=== PATIENT | male | born 1950 | race Hispanic/Latino ===

== ENCOUNTER 2018-08-26 05:44 | Inpatient (IN) | payer OTHER ==
--- NOTE | 2018-08-19 09:49 | RAD REPORT ---
EXAM DESCRIPTION: RAD - Chest Pa And Lat (2 Views) - 08/19/2018 9:39 am CLINICAL HISTORY: preop Chest pain. COMPARISON: CHEST PA AND LAT 2 VIEW dated 07/24/2009 FINDINGS: The lungs are clear. The heart is upper limit of normal in size. Mild tortuous thoracic ao rta. No displaced fractures. IMPRESSION: No acute or concerning finding suspected.
[2018-08-19 10:06] LABS: Absolute Lymphocytes (CBC) 1.6 K/uL (0.7-4.9); Absolute Monocytes 0.7 K/uL (0.1-1.3); Absolute Neutrophil 4.9 K/uL (1.8-8.0); Basophils % 0.8 % (0-1.3); Eosinophils % 1.6 % (0-4.4); Hematocrit 44.4 % (39.6-49.0); MPV 9.5 fL (7.6-11.3); Monocytes % 9.2 % (3.3-12.3); RBC Red Blood Cell Count 4.85 M/uL (4.33-5.43)
[2018-08-19 10:12] LABS: Protime INR 0.96
--- NOTE | 2018-08-20 10:32 | EKG ---
Test Date: 2018-08-19 Test Time: 08:26:57 Filenet Developer: GAMA MEASUREMENT RESULTS: Intervals: Rate: 78 MS: 182 QRSD: 102 QT: 388 QTc: 442 [place]: P: -8 MS: 182 QRS: -37 T: 59 INTERPRETIVE STATEMENTS: Normal sinus rhythm Left axis deviation Abnormal ECG No previous ECG available for comparison Electronically Signed On 08-19-18 09:35:49 CDT by Jamar Ford
--- OUTSIDE RECORDS SUMMARY | 2018-08-26 05:50 | XMS REPORT ---
:1950 Author Organization e[employer] Care Team Providers Name Role Phone Gabino Flannery Provider Role Unavailable Allergies, Adverse Reactions, Alerts Substance Reaction Event Type N.K.D.A. Info Not Available Non Drug Allergy Problems Problem Type Condition Code Onset Dates Condition Status Problem Primary osteoarthritis of right M17.11 Active knee Problem Primary osteoarthritis of left knee M17.12 Active Assessment Primary osteoarthritis of right M17.11 Active knee Assessment Primary osteoarthritis of left knee M17.12 Active Assessment Pain, joint, knee, left M25.562 Active Assessment Acute pain of right knee M25.561 Active Medications Medication Code System Code Instructions Start End Date Status Dosage Date Losartan [facility] 05366602008 50 MG Oral Active TK 1 T PO Potassium QD Results No Known Results Summary Purpose [employer] Submission
--- OUTSIDE RECORDS SUMMARY | 2018-08-26 05:50 | XMS REPORT ---
[...] Start End Date Status Dosage Date Losartan [facility] 51722255733 50 MG Oral Active TK 1 T PO Potassium QD Results No Known Results Summary Purpose [employer] Submission
--- OUTSIDE RECORDS SUMMARY | 2018-08-26 05:50 | XMS REPORT ---
:1950 Author Organization [employer] Care Team Providers Name Role Phone Gabino Flannery Provider Role Unavailable Allergies, Adverse Reactions, Alerts Substance Reaction Event Type N.K.D.A. Info Not Available Non Drug Allergy Problems Problem Type Condition Code Onset Dates Condition Status Problem Primary osteoarthritis of right knee M17.11 Active Problem Primary osteoarthritis of left knee M17.12 Active Assessment Primary osteoarthritis of right knee M17.11 Active Assessment Primary osteoarthritis of left knee M17.12 Active Medications Medication Code System Code Instructions Start End Date Status Dosage Date Losartan [facility] 89989786226 50 MG Oral Active TK 1 T PO Potassium QD Results No Known Results Summary Purpose [employer] Submission
--- OUTSIDE RECORDS SUMMARY | 2018-08-26 05:50 | XMS REPORT ---
:1950 Author Organization [employer] Care Team Providers Name Role Phone Flannery Gabino Provider Role Unavailable Allergies No Known Allergies Problems Problem Type Condition Code Onset Dates Condition Status Problem Primary osteoarthritis of right knee M17.11 Active Problem Primary osteoarthritis of left knee M17.12 Active Medications Medication Code System Code Instructions Start End Date Status Dosage Date Xarelto [facility] 78005481386 10 MG Orally Once August 13, Active 1 tablet a day for 11 days 2019 with food after surgery Results No Known Results Summary Purpose [employer]ClinicalWorks Submission
--- OUTSIDE RECORDS SUMMARY | 2018-08-26 05:50 | XMS REPORT ---
[...] left knee M17.12 Active Medications Medication Code Code Instructions Start End Date Status Dosage System Date [facility] 55283015991 7.5 MG Orally Feb 17, Mar 19, Active 1 tablet Once a day 2017 2017 Losartan [facility] 38923528729 50 MG Oral Active TK 1 T PO Potassium QD Results No Known Results Summary Purpose [employer]ClinicalWorks Submission
--- OUTSIDE RECORDS SUMMARY | 2018-08-26 05:50 | XMS REPORT ---
[...] Acute pain of right knee M25.561 Active Assessment Primary osteoarthritis of right M17.11 Active knee Assessment Primary osteoarthritis of left knee M17.12 Active Medications Medication Code System Code Instructions Start End Date Status Dosage Date Losartan [facility] 49641904531 50 MG Oral Active TK 1 T PO Potassium QD Results No Known Results Summary Purpose [employer] Submission
--- OUTSIDE RECORDS SUMMARY | 2018-08-26 05:50 | XMS REPORT ---
[...] right knee M25.561 Active Medications Medication Code Code Instructions Start End Date Status Dosage System Date Tramadol HCl [facility] 08781241631 50 MG Orally Jun 18, Jun 28, Active 1 tablet every 6 hrs 2018 2018 as needed Losartan [facility] 72227420863 50 MG Oral Active TK 1 T PO Potassium QD Results No Known Results Summary Purpose [employer]ClinicalWorks Submission
--- OUTSIDE RECORDS SUMMARY | 2018-08-26 05:51 | XMS REPORT ---
:1950 Author Organization [employer] Care Team Providers Name Role Phone Prudencio Gabino Provider Role Unavailable Allergies No Known Allergies Problems Problem Type Condition Code Onset Dates Condition Status Problem Primary osteoarthritis of right knee M17.11 Active Problem Primary osteoarthritis of left knee M17.12 Active Medications Medication Code System Code Instructions Start End Date Status Dosage Date [facility] [place] 13045439180 7.5-325 MG August 19, August 29, Active 1 tablet Orally every 6 2018 2018 as needed hrs Results No Known Results Summary Purpose [employer]ClinicalWorks Submission
--- OUTSIDE RECORDS SUMMARY | 2018-08-26 05:51 | XMS REPORT ---
:1950 Author Organization [employer]Works Care Team Providers Name Role Phone Gabino Flannery Provider Role Unavailable Allergies No Known Allergies Problems Problem Type Condition Code Onset Dates Condition Status Problem Primary osteoarthritis of right knee M17.11 Active Problem Primary osteoarthritis of left knee M17.12 Active Medications No Known Medications Results No Known Results Summary Purpose [employer]ClinicalWorks Submission
[2018-08-26] MEDS ORDERED: Ringers Lactate 1,000 ML IV ONE ×2 (06:04→07:08)
[2018-08-26] MEDS ORDERED: CEFAZOLIN/SWI 2gm 2 GM/20 ML SYR ONE (06:04)
[2018-08-26] MEDS ORDERED: FENTANYL CITR 250 MCG/5 ML ONE (07:12)
[2018-08-26] MEDS ORDERED: DEXAMETHASONE 4 MG/ML VIAL ONE (07:12)
[2018-08-26] MEDS ORDERED: MIDAZOLAM HCL 2 MG/2 ML INJ ONE (07:12)
[2018-08-26] MEDS ORDERED: ROPLVACAINE HCL 40 ML ONE (07:13)
[2018-08-26] MEDS ORDERED: TRANEXAMIC ACID 1,000 MG in NA CHLORIDE 0.9% 50 ML IV SCH (07:30)
[2018-08-26] MEDS ORDERED: BUPIVACA 0.5%/EPI 0.0005%/PF 30 ML VIAL ONE (07:34)
[2018-08-26] MEDS ORDERED: ONDANSETRON 4 MG/2 ML VIAL ONE (07:49)
[2018-08-26] MEDS ORDERED: EPHEDRINE SULF 50 MG/ML VIAL ONE (07:49)
[2018-08-26] MEDS ORDERED: PROPOFOL 200 MG/20 ML VIAL IV ONE (07:49)
[2018-08-26] MEDS ORDERED: LIDOCAINE 2% MPF 5 ML VIAL ONE (07:49)
[2018-08-26] MEDS ORDERED: ROCURONIUM 50 MG/5 ML VIAL IV ONE (07:50)
[2018-08-26] MEDS ORDERED: MEPERIDINE HCL 25 MG/0.5 ML ONE (10:26)
--- NOTE | 2018-08-26 10:37 | P.BOP ---
Preoperative diagnosis: left knee osteoarthritis Postoperative diagnosis: same Primary procedure: left total knee arthroplasty Drum Worker: NONE,NONE Estimated blood loss: 20 cc Specimen: left knee bone remnants Findings: see dictation Anesthesia: General Complications: None Drain(s): Urinary catheter Implants: Biomet 67.5 CR femur, 83 Tibia, 10 mm CR Epoly, 37 patella Fluids & blood products: per anesthesia; TT: 93 mins @ 300 mmHg Transferred to: Recovery Room Condition: Good
[2018-08-26] MEDS ORDERED: ONDANSETRON 4 MG/2 ML VIAL IV PRN (10:38)
[2018-08-26] MEDS ORDERED: DOCUSATE NA 100 MG CAP PO PRN (10:38)
[2018-08-26] MEDS: HYDROMORPHONE HCL 1 MG/ML INJ ONE ×2 (10:45→10:50)
[2018-08-26 11:07] LABS: Hematocrit 42.7 % (39.6-49.0)
[2018-08-26] MEDS ORDERED: HYDROMORPHONE HCL 1 MG/ML INJ ONE (11:13)
--- NOTE | 2018-08-26 11:21 | RAD REPORT ---
EXAM DESCRIPTION: RAD - Knee Left 2 View - 08/26/2018 11:10 am CLINICAL HISTORY: Post Op COMPARISON: No comparisons FINDINGS: Left total knee arthroplasty is present. Small amount of air is present in the joint space . Skin irma are noted along the midline. No unexpected finding. IMPRESSION: Left TKA.
[2018-08-26] MEDS: HYDROCODONE/APAP 7.5/325 MG TAB PO PRN ×2 (13:22→19:27)
[2018-08-26] MEDS: MORPHINE 4 MG/ML SYR IV PRN (16:41)
[2018-08-26] MEDS: CEFAZOLIN/SWI 2gm 2 GM/20 ML SYR IV SCH (16:41)
[2018-08-26] MEDS: OXYCODONE *CR* 10 MG TAB PO SCH (21:20)
[2018-08-26 21:57] LABS: Urine Appearance CLEAR; Urine Bilirubin NEGATIVE (NEG); Urine Blood NEGATIVE (NEG); Urine Color YELLOW; Urine Glucose NEGATIVE (NEG); Urine Protein NEGATIVE (NEG); Urine Specific Gravity 1.025 (1.005-1.030); Urine Urobilinogen 0.2 mg/dL (0.2-1.0); Urine pH 6.5 (5.0-7.0)
[2018-08-26 22:00] LABS: Urine Microscopic Reflex NO UMIC
--- NOTE | 2018-08-26 22:23 | P.OP ---
Preoperative diagnosis: left knee osteoarthritis Postoperative diagnosis: same Primary procedure: left total knee arthroplasty Anesthesia: General Estimated blood loss: 20 cc Specimen: left knee bone remnants Findings: see dictation Operative Technique: Indication For Procedure: Vito is a 68-year-old male, who presented to my clinic with leftt knee pain due to left knee osteoarthritis. The patient failed conservative treatment measures including home exercises, corticosteroid injections and viscosupplementation injections. He reported continued pain that affect his activities of daily living. He was recommended total knee arthoplasty. Description Of Procedure: After informed consent was obtained, the patient was identified in preop holding area. The left lower extremity was marked. The patient underwent a femoral nerve block performed by Anesthesia. He was then taken back to the operative room and transferred to the operating table in supine fashion and placed under general LMA anesthesia. The left lower extremity was then prepped and draped in usual sterile fashion. A time-out was initiated. Correct patient and procedure were confirmed and identified. The patient had received preoperative prophylactic antibiotics. The left lower extremity was exsanguinated and the tourniquet was inflated to 300 mmHg. Approximately, a 15 cm longitudinal incision was made over the anterior aspect of the knee centered over the patella. A standard median parapatellar approach was taken. The dissection was taken to the extensor mechanism. A median parapatellar arthrotomy was then performed. The patella was then everted and the fat pad and medial and lateral meniscus were excised. A lateral release was performed of the patella and osteophytes were removed using a rongeur. There was significant cartilage wear on the undersurface of the patella and it was decided to resurface the patella. Next, attention was taken to the femur, retractors were placed within the knee and the knee was held in flexion. A partial synovectomy was performed over the anterior aspect of the distal femur. A cutting block has been created preoperatively using MRI imaging and the block was then placed over the distal femur and then positioned and was stacked into place and pins were placed within the guide hole in the block. The distal femoral cutting guide was then placed over the pre-placed guide pin and the distal femur was cut after proper confirming using an Jamel wing. After this was performed, the anterior-posterior distal femoral cuts were made as well as the chamfer cut without complication. MCL and lateral remnants were resected as well as patellar tendon with knee retractors. Both remnants were then removed and sent to Pathology. Next attention was taken to the proximal tibia. The soft tissue medially was then elevated off the proximal tibia directly off bone using Bovie electrocautery. Pre-made cutting block was placed over the proximal tibia and once locked into position, pin were placed as well as the alignment muriel was used to ensure proper placement of the cutting guide. There was overall good alignment and position of the cutting guide. Pins were then placed. The cutting block was removed. The cutting guide was placed on the proximal tibia and again the jamel wing was then used to ensure proper depth of the cut. An osteotome then used to make cuts around the PCL and the saw was used to cut the proximal tibia and the proximal tibial cut was then removed with the meniscal grasper. Bone fragments were then removed and meniscectomies were completed. Next, the knee was held in 90 degrees of flexion and forward extension and a 10-mm guide was then selected and there was good overall fit and stability in flexion and extension. Next, the trials were placed, size 67.5 CR femur was placed and a size 83 tibia with a 10 mm poly. The knee was then ranged and had good stability, both in forward flexion and extension and had full range of motion. The knee was ranged and there was good stability of the patella as well as the rest of the knee. The tibia was marked with the Bovie electrocautery. The femur was drilled and once in proper position and the tibia was punched. Next attention was take to the patella. It was measured and it was reamed to thickness of 15 mm. A size 37 patella was selected and a trial was placed. The knee was ranged and there was overall good stability and patellar tracking. Trial implants were then removed. The knee was then irrigated thoroughly with pulsed lavage normal saline. A 0.5% Marcaine with epinephrine was then used 30 cc for local anesthetic and to aid with postoperative pain control. The cement was prepared as well as the implant. Size 83 tibia was then placed followed by the size 67.5 CR femur. Excess cement was then removed using Gordon elevator. The final size 37 patella button was placed with cement on the predilled patella. A 10-mm trial poly was then placed and the knee was held in full extension as the cement hardened. Once the cement was completely hardened, the knee was ranged with good overall stability as well as good flexion and extension. Trial poly ethylene liner was removed and a final 10 mm CR-E poly was placed and locked in position. The knee was again irrigated thoroughly with normal saline. The tourniquet was let down. Hemostasis was achieved with Bovie electrocautery. The extensor mechanism was closed with #1 Vicryl in an interrupted fashion followed by #1 Vicryl in a running fashion. Fascia was then approximated using 0 Vicryl. Subcutaneous tissue was approximated used 2-0 Vicryl and the skin was approximated using irma. Sterile dressings were applied. The patient was awakened and transferred to PACU in stable condition. Postoperative Plan: He will be weightbearing as tolerated. Physical therapy will aide with mobilization and pain management. CPM machine will be placed in the PACU postoperatively. Complications: None Drain(s): Urinary catheter Implants: 67.5 Biomet CR Femur, 83 Tibia, 10 mm CR-Epoly, 37 patella Fluids & blood products: per anesthesia record; TT: 93 mins @ 300mmHg Transferred to: Recovery Room Condition: Good
[2018-08-27] MEDS: CEFAZOLIN/SWI 2gm 2 GM/20 ML SYR IV SCH ×2 (00:49→08:35)
[2018-08-27] MEDS: ENOXAPARIN 30 MG/0.3 ML SQ SCH ×2 (05:17→17:44)
[2018-08-27] MEDS: MORPHINE 4 MG/ML SYR IV PRN ×2 (05:18→15:57)
[2018-08-27] MEDS: LOSARTAN POTASSIUM 50 MG TABLET PO SCH (05:19)
[2018-08-27] MEDS: CELECOXIB 100 MG CAPSULE PO SCH (08:36)
[2018-08-27] MEDS: OXYCODONE *CR* 10 MG TAB PO SCH ×2 (08:36→20:47)
[2018-08-27 10:15] LABS: Absolute Lymphocytes (CBC) 1.3 K/uL (0.7-4.9); Absolute Monocytes 1.4 K/uL (0.1-1.3); Absolute Neutrophil 8.7 K/uL (1.8-8.0); Basophils % 0.6 % (0-1.3); Eosinophils % 0.1 % (0-4.4); Hematocrit 41.8 % (39.6-49.0); Lymphocytes % 11.3 % (15.3-44.8); MPV 8.5 fL (7.6-11.3); Monocytes % 12.4 % (3.3-12.3); RBC Red Blood Cell Count 4.54 M/uL (4.33-5.43)
[2018-08-27 10:35] LABS: Potassium 3.6 mmol/L (3.5-5.1)
[2018-08-27] MEDS: HYDROCODONE/APAP 7.5/325 MG TAB PO PRN (12:08)
--- NOTE | 2018-08-27 13:10 | P.PN ---
Subjective Date of Service: 08/27/18 Chief Complaint: s/p L TKA Subjective: Ambulating, Working w/ PT Block has worn off. Some increased pain this AM. Physical Examination - Vital Signs Temperature: 97.3 F Blood Pressure: 124/69 Pulse: 83 Respirations: 15 Pulse Ox (%): 95 - Physical Exam General: Alert, In no apparent distress Musculoskeletal: Other (LLE: dressing c/d/i; +EHL/FHL/GSC/TA; sensation grossly intact distally) - Studies Laboratory Data (last 24 hrs) 08/27/18 10:07: Sodium 137, Potassium 3.6, BUN 14, Creatinine 1.11, Glucose 120 H 08/27/18 10:07: WBC 11.5 H D, Hgb 14.0, Hct 41.8, Plt Count 240 Assessment And Plan - Plan Vito is a 68 yo male w/ h/p hypertension s/p L TKA POD#1 -blood pressure has been WNL on losartan; continue to monitor -PT to mobilize; WBAT LLE -lovenox for DVT prophylaxis -patient will likely remain in hospital for at least 2 midnights post surgery
[2018-08-28] MEDS: LOSARTAN POTASSIUM 50 MG TABLET PO SCH (05:25)
[2018-08-28] MEDS: ENOXAPARIN 30 MG/0.3 ML SQ SCH (05:25)
--- NOTE | 2018-08-28 08:30 | P.DS ---
Admission Date: 08/26/18 Discharge Date: 08/28/18 Disposition: DC HOME/HOME HEALTH CARE Discharge Condition: GOOD Reason for Admission: s/p L TKA, h/o uncontrolled hypertension Consultations: none Procedures: left total knee arthroplasty on 08/26/2018 Brief History of Present Illness: Vito is a 68 yo male with h/o HTN that underwent L TKA on 08/26/2018 without complication and was admitted to the floor postoperatively. Hospital Course: Vito underwent L TKA on 08/26 without complication and was admitted to the floor in stable condition. His blood pressure and vital signs remained stable throughout his hospital course. He was started on lovenox for DVT prophylaxis on POD #1. His H/H remained stable. He mobilized well with PT and was safe for discharge on 08/28/2018. He was discharged on 08/28 in stable condition and will followup in my clinic for wound check and staple removal in 1-2 weeks. Vital Signs/Physical Exam: Temp Pulse Resp BP Pulse Ox 97.1 F 94 H 18 130/68 93 08/28/18 04:00 08/28/18 04:00 08/28/18 04:00 08/28/18 04:00 08/28/18 04:00 Laboratory Data at Discharge: WBC 11.5 K/uL (4.3-10.9) H D 08/27/18 10:07 Hgb 14.0 g/dL (13.6-17.9) 08/27/18 10:07 Hct 41.8 % (39.6-49.0) 08/27/18 10:07 Plt Count 240 K/uL (152-406) 08/27/18 10:07 PT 11.4 SECONDS (9.5-12.5) 08/19/18 09:28 INR 0.96 08/19/18 09:28 APTT 32.8 SECONDS (24.3-36.9) 08/19/18 09:28 Sodium 137 mmol/L (136-145) 08/27/18 10:07 Potassium 3.6 mmol/L (3.5-5.1) 08/27/18 10:07 BUN 14 mg/dL (7-18) 08/27/18 10:07 Creatinine 1.11 mg/dL (0.55-1.3) 08/27/18 10:07 Glucose 120 mg/dL (74-106) H 08/27/18 10:07 Home Medications: Losartan Potassium [Cozaar*] 50 mg PO [id number] 08/19/18 Hydrocodone 7.5/APAP 325 [[place] 7.5/325 mg*] 1 tab PO Q4H PRN tab 08/28/18 Patient Discharge Instructions: keep dressing clean and dry; WBAT LLE; begin Xarelto on 08/29/2018; call Dr. Flannery's clinic if increased swelling to left knee Diet: Regular Activity: Weight bearing as tolerated Followup: Gabino Flannery MD [ACTIVE - CAN ADMIT] - 1-2 Weeks
[2018-08-28] MEDS: CELECOXIB 100 MG CAPSULE PO SCH (09:00)
[2018-08-28] MEDS: OXYCODONE *CR* 10 MG TAB PO SCH (09:15)
[2018-08-28] MEDS: HYDROCODONE/APAP 7.5/325 MG TAB PO PRN (10:30)
== END 2018-08-28 12:15 | disposition home health service (06) | DRG 470 ==
LOC: OR 05:44 → 2ND 10:38
PROVIDERS: ADMIT Orthopaedic Surgery Sports Medicine; ATTEND Orthopaedic Surgery Sports Medicine
PROC: 0SRD069 Replacement of Left Knee Joint with Oxidized Zirconium on Polyethylene Synthetic Substitute, Cemented, Open Approach (ICD-10-PCS; principal; 2018-08-26 07:30)
DX: M17.12 Unilateral primary osteoarthritis, left knee (principal); I10 Essential (primary) hypertension
CPT/HCPCS: 36415; 71046; 80048; 81003; 85014; 85018; 85025; 85610; 85730; 88108; 88304; 88311; 93005; 97116; 97139; 97162; 97530; J0690; J1170; J1650; J2175; J2250; J2405; J2704; J2795; J3010